=== PATIENT | male | born 1975 | race Caucasian/White ===

== ENCOUNTER 2019-11-17 07:37 | Outpatient (CLI) | payer OTHER, SELFPAY ==
[2019-11-17 08:47] LABS: Absolute Basophil Count 0.05 k/cumm (0.0-0.2); Absolute Eosinophil Count 0.19 k/cumm (0.0-0.7); Absolute Lymphocyte Count 1.69 k/cumm (1.2-3.4); Absolute Neutrophil Count 2.13 k/cumm (1.2-6.7); Basophils % 1.1; Eosinophils % 4.4; HCT 48.6 % (40.0-50.0); HGB 17.1 g/dL (13.5-17.5); Lymphocytes % 38.8; Mean Corp. HGB Concentration 35.2 g/dL (32.0-36.0); Mean Corpuscular Hemoglobin 30.9 pg (27.0-33.0); Mean Corpuscular Volume 87.7 fL (80-95); Mean Platelet Volume 8.9 fL (8.0-11.0); Monocytes % 6.9; Neutrophils % 48.8; Platelet Count 222 x1000/uL (130-400); RBC 5.54 m/cumm (4.50-6.00); RBC Distribution Width 13.7 % (11.8-14.1); White Blood Cell Count 4.36 k/cumm (4.4-10.8)
[2019-11-17 09:20] LABS: ALT 48 U/L (16-63); AST 30 U/L (15-37); Albumin 4.2 g/dL (3.4-5.0); Alkaline Phosphatase 93 U/L (46-116); Anion Gap 9.5 mmol/L (3-11); BUN 15 mg/dL (7-18); Bilirubin, Total 0.5 mg/dL (0.2-1.0); CO2 27.5 mmol/L (21.0-32.0); CREATININE 1.03 mg/dL (0.70-1.30); Calcium 9.2 mg/dL (8.5-10.1); Chloride 104 mmol/L (98-107); Glucose 95 mg/dL (74-106); Potassium 3.6 mmol/L (3.5-5.1); Sodium 141 mmol/L (136-145)
[2019-11-18 09:17] LABS: HBs Antibody, Quant 5.3 mIU/mL (See Note); Hepatitis B Surface Ab Negative (See Note); Hepatitis B Surface Ag Negative (Negative)
[2019-11-18 10:30] LABS: PSA, Screening 0.8 ng/mL (0.0-2.5)
[2019-11-18 10:48] LABS: Hep A Total Ab w Rflx IgM Negative (Negative)
[2019-11-18 10:49] LABS: Hep B Core Antibody Positive (Negative); Hepatitis C Ab w Rflx HCV PCR Negative (Negative)
[2019-11-18 14:28] LABS: HIV-1/2 Ag & Ab Screen Reactive (Negative)
[2019-11-18 15:25] LABS: HBc IgM Ab, S Negative (Negative)
[2019-11-21 10:06] LABS: Syphilis Serology (RPR) Positive (Negative)
[2019-11-21 10:18] LABS: HIV 1 Ab Diff Positive (NEGAT); HIV 2 Ab Diff Negative (NEGAT)
[2019-11-21 14:10] LABS: TB Interpretation Negative (Negative)
[2019-11-28 12:03] LABS: RPR Screen w/Reflex Nonreactive (Nonreactive); Syphilis Total Ab w/Reflex Reactive (Nonreactive)
[2019-11-28 12:10] LABS: Syphilis Ab, TP-PA Positive (Negative)
[2019-12-06 11:39] LABS: Emitricitabine SUSC; HIV-1 Genotypic PR-RT Drug Res INTERP; Lopinavir and Ritonavir SUSC
[2019-12-06 11:41] LABS: Tipranavir andRitonavir SUSC
== END 2019-11-17 07:57 ==
PROVIDERS: Visit Provider Nurse Practitioner Family
DX: Z11.59 Encounter for screening for other viral diseases (principal); Z11.4 Encounter for screening for human immunodeficiency virus [HIV]; Z12.5 Encounter for screening for malignant neoplasm of prostate
CPT/HCPCS: 0064U; 36415; 80053; 84153; 86701; 86702; 86704; 86706; 86709; 86780; 86803; 87340; 87389; 87536; 85025; 86480; 86592; 86705; 87901

== ENCOUNTER 2019-11-18 10:04 | Outpatient (CLI) | payer OTHER, SELFPAY ==
--- NOTE | 2019-11-18 11:29 | CCCE_ITS ---
Date of service: 11/18/19 Time of Service: 11:29 Comprehensive Care Clinic Note Note: [facility] [address], [address] [place] [address] Initial [facility] Visit Information New or Remote Diagnosis of HIV + testing (1-2 hours) Name: Nickolas Capps Medial Record #: [facility] - [id number] Primary Care Provider: Needs to establish here in [place] Date of : 1975 Date of Service: 11/18/2019 SUBJECTIVE HPI: Nickolas comes today for the first visit at the [facility] as he had a positive home HIV test on Thursday after being contacted twice by a past sexual partner ? first to tell him he may have been exposed to Chlamydia after which he went to a walk in clinic (he had no symptoms) and got an RX for Doxycycline which he is taking now. The second call from this previous sexual partner was to tell him that the HIV Ab test that was done at the time of the Chlamydia Dx was positive. Nickolas says that his first sexual encounter with this person was in 2007 and they were partners for a period of time, then but had sexual contact with each other on two other occasions after that, once in approximately 2010, and the other approximately 2013-. Safer sex was not practiced but this person did reveal to Nickolas on the last recent call that he actually had never been tested for the HIV Ab in the past even though he knew he had risks for prior exposures. 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 He is going to see his PCP today for more testing. Nickolas decided to come here because of the positive and wanting not only more testing but to get into HIV care [facility] and get on medication right away if the virus is detected. ROS: Constitutional: Feels well, weight is stable, no fever, chills, night sweats, fatigue Skin: He gets rashes that come and go on his extremities and has for about 10 years, has always has had ?sensitive skin? that gets red and rashes w certain contacts. Has had HSV outbreaks on his buttocks for many years and currently has a 2 days ?bad outbreak? which he attributes to the shock and stress of this + test. Denies much pain w BMs. No anal D/C. Head: Not prone to headaches, no sig head traumas Eyes: has worn corrective lenses since 1999. No other sig eye Hx Ears,Nose,Throat,Mouth: No hearing impairment, no H/O epistaxis, able to breathe through his nose, has had a scratchy throat but no rhinorrhea, denies mouth lesions Teeth: has upper dentures, no dental problems in the lower teeth Neck: denies stiffness, aching, lumps Cardiovascular: No chest pain, pressure, palpitations. Says his BP ?is always high when I go to a medical facility?. Respiratory: No dyspnea, cough, never hemoptysis Gastrointestinal: Get heartburn about twice a week relieved by TUMS and attributes this to ?what I eat and if stressed?, No N/V, bowel dysfunction or H/O dark, tarry stools or hemachezia Genitourinary: neg Musculoskeletal: neg Endocrine: neg Lymphatic: neg Hematologic: not prone to bleeding or bruising Allergic/Immunologic: not now Allergies/Sensitivities: NKDA, Had food allergies as a child ? not bothered now. Current Medications: Other than the current RX for Doxy ? prn Tylenol, TUMS, multi vits and takes Vitamin C in the spring time when he is traveling on planes frequently for work. Past medications Ineffective: None ?I?ve never really taken any medications.? Past Medical History: He had a significant illness in 2007 and was hospitalized at [facility] for ?Viral meningitis? which he believes was HSV and states at that time his HIV test was negative. He has had no subsequent HIV testing until this past Thursday at home which was + Past Surgical History: Appendectomy at age 18yo Past Psychiatric History: negative ? no h/o depression, SI/HI, but states he considers himself to be a bit compulsive ? ?I won?t stop until I finish something completely ? especially for work.? Social History: Demographics: Lives with his long wall mining machine helper partner in a currently monogamous, committed relationship. Place of : [place] Gender: male - at and now Racial Distribution: Primary Language: Belarusian Secondary Language(s): none Current County, State [place] Residence: [place] [address] x 1 year - [place] Marital Status: Single Family Size: 2 Pets: Currently has 1 dog and 2 indoor cats w litter boxes, 2 poisonous dart frogs and 1 parrot; outdoors 2 goats and chickens ? never in the house. Past Animal Exposures: As a kid - Reptiles ? had an iguana and his family boarded horses of which his chore was to ride and exercise them. Housing: Owns the home in [place] and has one in [facility]. other than [place] where he was born, he has not lived in other states/places Incarceration History: None History: None Travel: Out of the [place] - Most recent [facility] in 2011, prior on various islands in the [place] Highest Grade Completed: College Able to read? 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 does spring travel for this job, other times works in his home. Occupational Exposures: non sig Health Insurance: Has private Substance Abuse History: Tobacco: Smoker: quit tobacco 6 years ago ? was a heavy, 2 ppd smoker. Amount: now vapes w 12 mg nicotine cartridges that are vegetable based and no flavored. ETOH: 2 to 3 x Weekly Type: wine or cocktails, Amount: 1 if during the week, 2-3 on the weekend Illicit Drug Use: If + Type(s): None RX Drug Dependence: if + Type(s) Amount: None IVDU Hx: never Other Psychosocial Considerations: Parents 1-2 years ago 6 months apart ? he was caregiver for his Father when he was dying w Prostate Cancer Family History: Both parents were heavy smokers Mother: at age 60 from [place] (6 months after his Father ) Father: at age 60 from prostate cancer, had H/O MIs 6 years prior to his Siblings: 1 Bother ? ?not in close contact? ? healthy, 1 sister w H/O total hysterectomy, oophorectomy ? not sure why Children: None Grand Parents: Maternal not known as his Mother was adopted; paternal GF in his 90s w prostate cancer and has had strokes. Extended: 1 paternal Uncle w prostate cancer Immunization History: Tetanus ? not sure Hepatitis A Series Does not think he had; Hepatitis B Series: Had and believes he was + for the antibodies when he was hospitalized at [facility] in 2007. Flu Vaccine: No Pneumovax: No; Prevnar 13 No Other: Had all Childhood vaccines in the ?70s ? Had a ?Mumps Booster? when a freshman in college Health Maintenance/ID Screening: PPD: never PAP/Anal: never Colonoscopy: no OBJECTIVE Height: 5?11? Weight: 178# BMI: 24 Temp: 37.1 Pulse: 82 Resp: 14 BP: 146/86 General: AAOx4, AINAD, well-nourished Skin: + vesicular lesions w erythematous areas on buttocks into anal area Head: NC, NT Eyes: anicteric, PERRL ENT: clear Mouth/Teeth: No lesions seen, upper denture, lower teeth in good repair Pharynx: clear, uvula midline Neck: supple CV/Pulses: RRR, No MCRG, pulses 2/4 & = Chest/Lungs: CTPA ? heard in all lobes Abdomen: NABS, soft ND, NT, No OGM Extremities: No edema, equal length Musculoskeletal: FROM and no effusions, deformaties Neuro: Gait strong/steady, no tremor, Strength/Sensation 5/5 x 4 : Normal ? no lesions or D/C Pelvic: NA Rectal: Refused/deferred due to vesicles and tenderness Lymphatic: No adenopathy Psych: Appearance: well groomed, stated age Eye Contact: good Attitude: cooperative Speech: normal Affect: appropriate Mood: euthymic Memory: short-term intact Self-Perception: wnl Motor Activity: normal Orientation: intact Attention: intact Thought Process: logical Thought Content: wnl Perceptions: wnl Judgement: intact Insight: excellent ASSESSMENT/ PLAN #1. Nickolas has risks for HIV disease and had a + home HIV Ab test. Further testing is needed. Safe sex and other preventative practices are discussed today. Has condoms but is electing to not be sexually active at this time. Lab work has been ordered and drawn for CBCD, CMP, Serologies for Repeat HIV Ab testing, HAV total Ab, HBV Ag, sAb, cAb, RPR, and HIV RNA PCR QN and if + HIV resistance testing is requested. Also added a QuantiFerron and a PSA. I will contact him with the results and he feels fine with receiveing the results over the phone as he states he feels more relieved having talked with me today. #2. Chronic HSV w current outbreak of 2 days ? RX Valtrex 1000mg q 12 hours x 10 days. Keep the area clean and dry especially p BMs. visit scheduled: Will set him up for an appointment in December when Dr. Abebe is here if the testing is positive. Will discuss findings w prior to that appointment. Lab Work: Lab Requisition given for above testing Release of records: May need to sign for the old record of the [facility] admission in 2007 ASO/Social Work referral: If + will refer him to [facility] for help accessing HIV related services Psychiatry referral: Not needed at this time Provider of Care: Kathia Santos, BUYER TOBACCO HEAD
== END 2019-11-18 10:24 ==
PROVIDERS: Visit Provider Nurse Practitioner Family
DX: B00.9 Herpesviral infection, unspecified (principal); Z20.6 Contact with and (suspected) exposure to human immunodeficiency virus [HIV]; Z71.7 Human immunodeficiency virus [HIV] counseling; Z72.52 High risk homosexual behavior
CPT/HCPCS: 99205

== ENCOUNTER 2019-11-28 13:35 | Outpatient (CLI) | payer OTHER, SELFPAY ==
[2019-11-28 14:09] LABS: Abs Immature Grans 0.01 k/cumm (0.0-0.09); Absolute Basophil Count 0.03 k/cumm (0.0-0.2); Absolute Eosinophil Count 0.06 k/cumm (0.0-0.7); Absolute Lymphocyte Count 1.48 k/cumm (1.2-3.4); Absolute Monocyte Count 0.26 k/cumm (0.11-0.7); Absolute Neutrophil Count 2.68 k/cumm (1.2-6.7); Basophils % 0.7; Eosinophils % 1.3; HCT 45.8 % (40.0-50.0); HGB 15.8 g/dL (13.5-17.5); Immature Grans % 0.2 %; Lymphocytes % 32.7; Mean Corp. HGB Concentration 34.5 g/dL (32.0-36.0); Mean Corpuscular Hemoglobin 30.9 pg (27.0-33.0); Mean Corpuscular Volume 89.6 fL (80-95); Mean Platelet Volume 8.5 fL (8.0-11.0); Monocytes % 5.8; Neutrophils % 59.3; Platelet Count 204 x1000/uL (130-400); RBC 5.11 m/cumm (4.50-6.00); White Blood Cell Count 4.52 k/cumm (4.4-10.8)
[2019-11-29 16:19] LABS: CD3 78 % (62-87); CD4 25 % (35-63); CD8 52 % (10-35)
== END 2019-11-28 13:55 ==
PROVIDERS: Visit Provider Nurse Practitioner Family
DX: B20 Human immunodeficiency virus [HIV] disease (principal)
CPT/HCPCS: 36415; 85025; 86359; 86360

== ENCOUNTER 2019-12-05 10:30 | Outpatient (CLI) | payer OTHER, SELFPAY ==
--- NOTE | 2020-06-18 10:33 | CCCE_ITS ---
Date of service: 06/18/20 Time of Service: 10:30 Comprehensive Care Clinic Note Note: Follow up Telehealth Visit ? [facility] Name: Nickolas Diggs : 1975 Date of Service: 06/18/2020 PCP: None SUBJECTIVE CC/HPI: Telehealth acute visit with Nickolas as he is having increasing anxiety, worry and controlling behaviors that are interfering with healthy communication with is partner and he feels it could damage his relationship. He would like to try a medication to help to modulate this and have him feeling closer to his normal state of mind. 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 H has not been traveling and neither has his partner. He and his partner have been physically well, not at all ill, and have been f ollowing strict pandemic precautions. He is taking his HIV medications daily and not missing. He says he read that Biktarvy has been known to alter one?s mental status and make some depression or anxiety worse. This was not the case when he stated this medication last winter. Onset of these symptoms started early in the summer and he thinks it is stress related to the general unrest in the nation and world. Says he has always been on the anxious side and his partner is medicated for anxiety. ROS: he has not had febrile illness, weight is stable w no change in his appetite. His sleep is not different than it has been for years and he admits to me he gets about 3 to 4 hours of sleep a night. No headaches, visual changes, neck pain or stiffness, sore throat, cough or dyspnea. No palpitations or chest pain, BPs have been running high. No GI disturbance, paresthesias, weakness, tremor, gait alteration, balance issues. No swelling, unusual bleeding or rash. Denies HI/SI. Past Medical History: Labile BP, Dx with HIV in November of this year and started on Biktarvy soon after. Last F/U w Dr. Abebe was at the end of December/begining of January. 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 but have asked he keep a BP diary Speech clear, coherent w normal pressure and no breathlessness Psych: Attitude Cooperative, speech normal, Affect appropriate, Mood anxious, Memory intact both short and intermediate accountant, self-perception and general perceptions wnl, orientation intact x3, attention intact, thought process logical but describes some racing thoughts w worry, insight good. ASSESSMENT/PLAN 1. HIV ? not AIDS ? ART daily w adherence and normal lab work earlier in the year. 2. Anxiety ? Seems generalized and now an acute exacerbation of life long anxiety. I have recommended he establish care with a PCP in his area but in the meantime will RX for Buspirone 7.5 mg bid and increase to tid after 2 days, then after a week increase to 10 mg tid and maintain at that dose for a month. F/U with me in 2 weeks to see if he notices an improvement, sooner prn. 3. Labile BP - BP diary. MD visit: July or August. Lab Work: to be done in the fall Provider of Care: Kathia Santos, MSN, PRACTICE ARCHITECT. Date: 06/18/2020
== END 2019-12-05 10:50 ==
PROVIDERS: Visit Provider Nurse Practitioner Family
DX: B20 Human immunodeficiency virus [HIV] disease (principal)
CPT/HCPCS: 90471; 90472; 90686; 99213; 90732; 99204

== ENCOUNTER 2020-01-03 10:41 | Outpatient (CLI) | payer OTHER, SELFPAY ==
[2020-01-03 12:43] LABS: ALT 41 U/L (16-63); AST 25 U/L (15-37); Albumin 4.2 g/dL (3.4-5.0); Alkaline Phosphatase 98 U/L (46-116); BUN 12 mg/dL (7-18); Bilirubin, Total 0.4 mg/dL (0.2-1.0); CREATININE 0.97 mg/dL (0.70-1.30); Calcium 8.9 mg/dL (8.5-10.1); Calculated LDL 152 mg/dL (<100); Chloride 102 mmol/L (98-107); Cholesterol 229 mg/dL (<200); Glucose 96 mg/dL (74-106); HDL Cholesterol 66 mg/dL (40-60); Potassium 4.7 mmol/L (3.5-5.1); Sodium 139 mmol/L (136-145); Total Protein 7.9 g/dL (6.4-8.2); Triglyceride 59 mg/dL (<150)
== END 2020-01-03 11:01 ==
PROVIDERS: PCP Internal Medicine Infectious Disease; Visit Provider Nurse Practitioner Family
DX: B20 Human immunodeficiency virus [HIV] disease (principal); Z79.899 Other long term (current) drug therapy
CPT/HCPCS: 36415; 80053; 80061

== ENCOUNTER 2020-05-07 11:07 | Outpatient (CLI) | payer OTHER, SELFPAY ==
--- NOTE | 2020-05-07 12:09 | CCCE_ITS ---
Date of service: 05/07/20 Time of Service: 11:09 Comprehensive Care Clinic Note Note: Follow up Telephone Visit ? [facility] Name: Nickolas Diggs : 1975 Date of Service: 05/07/2020 PCP: None. Copy to: Rui Abebe, DO ? [facility] ID SUBJECTIVE CC/HPI: Nickolas has been starting with an acute activation of his chronic anal HSV. He called to request a renewal of the Valtrex RX. He says they are painful but not draining purulence and he has been keeping the area clear and dry with topical over the counter ointment. Overall he is feeling well, adhering to public health safety advice to avoid Covid19. His partner is also doing the same and they have been staying home most of the time. He has had no adverse side effect from the Biktarvy and has not missed doses. ROS: denies fever, chills, respiratory symptoms, GI symptoms but has the typical painful lesions in the anal area of HSV. The last he has Valtrex was in November. Past Medical History: -Dx w HIV in Nov 2019 w CD4 of 373/25% and a viral load of 42,278. Started B iktarvy, ARV RX in December. He had F/U Chemistries on December which were normal and was to have an HIV1 PCR in a couple weeks after that but then the Covid19 restrictions were set in place and he has not been back to the hospital for those labs. He did have a telephone conversation with Dr. Abebe in early January and will have more lab work done in the late May/early June time frame and F/U w Dr. Abebe in July. -Syphilis Dx about 10 years ago and Treated. -Chronic HSV infection with flares triggered by stress. -Has elevated BP readings and has been encouraged to establish care with a PCP in his area in [facility]. Social History Update: Lives with male partner in committed relationship who has been tested and results are said to be negative. 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 ASSESSMENT/PLAN Acute exacerbation of Chronic HSV from history. RX Valtrex 1000mg bid for 10 days. RX faxed to [facility] in [place], [place]. Nickolas will call in a few days with a status update. Will hold off on the blood work until this exacerbation has resolved. MD visit: next July. Lab Work: End of May/Early June for CMP, CD4 immunodeficiency panel, and HIV1 pcr.
== END 2020-05-07 11:27 ==
PROVIDERS: PCP Internal Medicine Infectious Disease; Visit Provider Nurse Practitioner Family
DX: R69 Illness, unspecified (principal)
CPT/HCPCS: NC

== ENCOUNTER 2020-06-18 10:30 | Outpatient (CLI) | payer OTHER, SELFPAY | END 2020-06-18 10:50 | PROVIDERS: PCP Internal Medicine Infectious Disease; Visit Provider Nurse Practitioner Family | DX: B20 Human immunodeficiency virus [HIV] disease (principal) | CPT/HCPCS: 90471; 90472; 90686; 99213; 90732 ==

== ENCOUNTER 2020-07-11 02:26 | Outpatient (CLI) | payer OTHER, SELFPAY ==
[2020-07-11 14:02] LABS: Abs Immature Grans 0.01 10^3/uL (0.0-0.06); Absolute Basophil Count 0.05 10^3/uL (0.0-0.2); Absolute Eosinophil Count 0.04 10^3/uL (0.0-0.7); Absolute Lymphocyte Count 1.41 10^3/uL (1.2-3.4); Absolute Monocyte Count 0.32 10^3/uL (0.1-0.8); Absolute Neutrophil Count 3.37 10^3/uL (1.2-6.7); Eosinophils % 0.8; HCT 48.1 % (40.0-50.0); HGB 17.1 g/dL (13.5-17.5); Immature Grans % 0.2; Lymphocytes % 27.1; MCH 33.1 pg (27.0-33.0); MCHC 35.6 % (32.0-36.0); MCV 93.2 fL (80-95); Monocytes % 6.2; Neutrophils % 64.7; Nucleated RBC 0 %; Platelet Count 230 10^3/uL (130-400); RBC 5.16 10^6/uL (4.36-5.78); RDW 11.9 % (11.8-14.1); RDW-SD 41.7 fL
[2020-07-11 15:26] LABS: ALT 25 U/L (16-63); AST 18 U/L (15-37); Albumin 4.2 g/dL (3.4-5.0); Alkaline Phosphatase 92 U/L (46-116); BUN 8 mg/dL (7-18); Bilirubin, Total 0.6 mg/dL (0.2-1.0); CREATININE 1.09 mg/dL (0.70-1.30); Calcium 9.2 mg/dL (8.5-10.1); Chloride 101 mmol/L (98-107); Glucose 95 mg/dL (74-106); Potassium 3.7 mmol/L (3.5-5.1); Sodium 138 mmol/L (136-145); Total Protein 7.7 g/dL (6.4-8.2)
[2020-07-12 14:02] LABS: HIV 1 RNA Qualitative Undetected copies/mL (Undetected)
[2020-07-14 14:54] LABS: CD3 75 % (62-87); CD4 38 % (35-63); CD8 38 % (10-35)
== END 2020-07-11 02:46 ==
PROVIDERS: PCP Internal Medicine Infectious Disease; Visit Provider Internal Medicine Infectious Disease
DX: B20 Human immunodeficiency virus [HIV] disease (principal); Z79.899 Other long term (current) drug therapy
CPT/HCPCS: 36415; 80053; 87536; 85025; 86359; 86360

== ENCOUNTER 2020-07-16 08:08 | Outpatient (CLI) | payer OTHER, SELFPAY ==
--- NOTE | 2020-07-16 08:41 | CCCE_ITS ---
Date of service: 07/16/20 Time of Service: 08:42 Comprehensive Care Clinic Note Note: [facility] [address] [place] [address] [facility] Visit for Medical Follow Up Name: Nickolas Diggs Medical Record [id number] Date of : 1975 Primary Care Provider: Esteban Abebe DO Date of Service: 07/16/2020 SUBJECTIVE CC: Over all feels well and no recent febrile illness HPI: Nickolas has been keeping consistent with the public health recommended Covid avoidance precautions and has not had fever, chills, night sweats, cough, or fatigue. Has not had a Covid test. Overall has felt will. Needs a flu shot and Prevnar vaccine. He is taking the Buspar for anxiety and usually 10 mg tid. At first it interfered with sleep if he took it too close to HS but taking it earlier and resolved that issue. Denies any other side effects. ROS Constitutional: Good energy, appetite, sleep. Weight is stable. Skin: Denies rash Head: Denies trauma, head ache Eyes: Denies visual disturbance Ear/Nose/Throat: Negative Mouth/Teeth: UTD w dental Neck: No pain or stiffness CV: Denies chest pain, pressure, palpitations Respiratory: denies dyspnea, hemoptysis GI: No N/V/D/C or rectal bleeding : Negative Musculoskeletal: Denies joint or back pain Endocrine: No polyuria, polydipsia; heat or cold intolerance Lymphatic: Has not noted any enlarged nodes Hematologic: No unusual bleeding, bruising Immunologic: CD4 count has never been below 200, no risk for OI Psychiatric: Anxiety and worry is better, No Depression, SI/HI Allergies/Sensitivities: NKDA Current Medications: Biktarvy Medical / Surgical History Update: Nothing new Psychiatric History Update: Anxiety better with Buspar Social History Update: Still living with care home partner in [place], 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 Influenza and pneumococcal 13 Health Maintenance: Needs other immunizations and a schedule will be made to get those as well as establish care with a PCP as Dr. Abebe is his ID specialty physician. OBJECTIVE Temp: 97.2, Pulse: 68, Respirations: 14, Blood Pressure: 142/90 General: Appears well Skin: clear Head: Eyes: non icteric Lungs: clear Psychiatric: mood euthymic, Affect normal Lab work done 07/11/2020 ? WBC normal, Chemistries WNL, CD4 530/38%, HIV VL undetectable. ASSESSMENT/PLAN HIV, not AIDS ? MD visit scheduled: late fall for F/U Immunizations given: Flulaval Quadravalent w/o preservative, [employer], Lot # [id number], exp 05/01/2021 ? L arm & Prevnar 13, [employer], Lot # [id number], Exp 09/2021 ? R arm.
== END 2020-07-16 08:28 ==
PROVIDERS: PCP Internal Medicine Infectious Disease; Visit Provider Nurse Practitioner Family
DX: B20 Human immunodeficiency virus [HIV] disease (principal); Z79.899 Other long term (current) drug therapy; Z23 Encounter for immunization
CPT/HCPCS: 90471; 90472; 90670; 90686; 99213